=== PATIENT | female | born 1960 | race African-American/Black ===

== ENCOUNTER 2017-07-02 01:55 | Inpatient (IN) | payer OTHER ==
[~2017-07-02] VITALS: Ht 162.6 cm; Wt 61.2 kg
[2017-07-02] MEDS ORDERED: ONDANSETRON HCL 4MG/2ML VIAL IV STA (02:36)
[2017-07-02] MEDS ORDERED: METHYLPREDNISOLONE SOD SUCC 125 MG/2 ML VIAL IV STA (02:36)
[2017-07-02] MEDS ORDERED: MAGNESIUM 2 G PREMIX 50 ML IV ONE (02:45)
[2017-07-02] MEDS ORDERED: LEVOFLOXACIN 750MG PREMIX 150 ML IV ONE (02:45)
[2017-07-02] MEDS ORDERED: IPRATROPIUM/ALBUTEROL 0.5-3(2.5)MG/3ML NEB HHN ONE (03:00)
[2017-07-02 03:18] LABS: BASOPHILS % 0.1 % (0.0-2.0); EOSINOPHILS % 0.3 % (0.0-5.0); HEMATOCRIT. 39.5 % (36.0-48.0); HEMOGLOBIN. 12.5 g/dL (12.0-16.0); LYMPHOCYTES % 16.6 % (20.0-50.0); MEAN CORPUSCULAR HEMOGLOBIN 26.6 pg (28.0-32.0); MEAN CORPUSCULAR VOLUME 84.2 fL (81.0-99.0); MONOCYTES % 4.7 % (2.0-8.0); NEUTROPHILS % 78.3 % (40.0-76.0); PLATELET 229 x1000/uL (130-400); RED BLOOD CELL COUNT 4.69 mill/uL (4.2-5.4); RED CELL DISTRIBUTION WIDTH 14.7 % (11.6-14.6)
[2017-07-02 03:32] LABS: CARBON DIOXIDE 28 mEq/L (21-32); CHLORIDE 106 mEq/L (98-107); CREATINE KINASE 29 IU/L (26-192); TROPONIN I < 0.02 ng/mL (0.00-0.04)
[2017-07-02 05:11] LABS: BG BASE EXCESS 0.4 mmol/L (-2.0-2.0); BG CARBOXYHEMOGLOBIN 0.5 % (0.5-1.5); BG DEOXYHEMOGLOBIN 2.3 % (0.0-5.0); BG FRACTION INSPIRED OXYGEN 28; BG HCO3 ACT 25.7 mmol/L (22.0-26.0); BG METHEMOGLOBIN 0.5 % (0.0-1.5); BG OXYGEN SATURATION 97.7 % (92.0-98.5); BG OXYHEMOGLOBIN 96.7 % (94.0-97.0); BG PCO2 44.1 mmHg (35.0-45.0); BG PH 7.384 (7.350-7.450); BG PO2 97.9 mmHg (75.0-100.0); BG SAMPLE SITE RIGHT RADIAL; BG VENT MODE NASAL CANNULA
[2017-07-02 05:59] LABS: CLARITY URINE CLEAR (CLEAR); COLOR URINE YELLOW (YELLOW); KETONES URINE NEGATIVE (NEGATIVE); LEUKOCYTE ESTERASE URINE NEGATIVE (NEGATIVE); NITRITE URINE NEGATIVE (NEGATIVE); OCCULT BLOOD URINE NEGATIVE (NEGATIVE); PH URINE 5.5 (4.5-8.0); PROTEIN URINE NEGATIVE (NEGATIVE); SPECIFIC GRAVITY URINE 1.012 (1.005-1.030); UROBILINOGEN URINE 0.2 E.U./dL (0.2-1.0)
[2017-07-02] MEDS ORDERED: P20 PO (08:22)
[2017-07-02] MEDS ORDERED: FLUT1DIS6 IH (08:22)
[2017-07-02] MEDS ORDERED: ALBU2.5V13 IH (08:22)
[2017-07-02 08:31] VITALS: BP 127/72
[2017-07-02 08:35] VITALS: BP 127/72
[2017-07-02 12:11] VITALS: BP 127/72
[2017-07-02 12:44] VITALS: BP 122/66
[2017-07-02] MEDS: IPRATROPIUM/ALBUTEROL 0.5-3(2.5)MG/3ML NEB HHN SCH ×2 (13:05→15:37)
[2017-07-02 16:00] VITALS: BP 106/52
[2017-07-02] MEDS ORDERED: ONDANSETRON HCL 4MG/2ML VIAL IV PRN (16:45)
[2017-07-02 17:46] VITALS: BP 106/52
== END 2017-07-02 17:39 | disposition home or self-care (01) | DRG 202 ==
LOC: ER 01:55 → 6WST 05:43 → EDBEDREQ 05:48 → EDBEDREQTM 05:48 → ENRESERV 07:26
PROVIDERS: ADMIT Internal Medicine; ATTEND Internal Medicine
DX: J45.909 Unspecified asthma, uncomplicated (principal); R65.10 Systemic inflammatory response syndrome (SIRS) of non-infectious origin without acute organ dysfunction; E78.00 Pure hypercholesterolemia, unspecified
CPT/HCPCS: 36415; 36600; 80053; 81001; 82375; 82550; 82805; 83605; 83690; 83880; 84443; 84484; 85025; 85610; 85730; 87040; 93005; 94640; 96365; 96367; 96375; 99285; J1956; J2405; J2930; J3475; J7620